=== PATIENT | male | born 1990 | race Caucasian/White ===

== ENCOUNTER 2016-08-16 03:23 | Emergency (ER) | payer OTHER ==
[~2016-08-16] VITALS: Ht 193 cm; Wt 99.8 kg
[2016-08-16] MEDS ORDERED: KETOROLAC 30 MG/ML VIAL (J1885) IM ONE (04:00)
[2016-08-16] MEDS ORDERED: KETOROLAC 30 MG/ML VIAL (J1885) IV ONE (04:15)
[2016-08-16] MEDS ORDERED: METHOCARBAMOL 1,000 MG/10 ML VIAL (J2800) IM ONE (04:15)
[2016-08-16] MEDS ORDERED: METHOCARBAMOL 1,000 MG/10 ML VIAL (J2800) IV ONE (04:15)
[2016-08-16 04:52] VITALS: BP 129/63
== END 2016-08-16 05:01 | disposition home or self-care (01) ==
LOC: M ED 04:29
DX: M62.830 Muscle spasm of back (principal); M54.5 Low back pain; G89.29 Other chronic pain
CPT/HCPCS: 96374; 96375; 99282; J1885; J2800

== ENCOUNTER 2017-01-01 21:07 | Emergency (ER) | payer OTHER ==
[~2017-01-01] VITALS: Ht 193 cm; Wt 103.0 kg
[2017-01-01] MEDS ORDERED: CETI10TA (21:18)
[2017-01-01] MEDS ORDERED: CHAN1PAK9 (21:18)
[2017-01-01] MEDS ORDERED: SOMA350T PO (22:40)
[2017-01-01 22:44] VITALS: BP 123/55
[2017-01-01] MEDS ORDERED: KETOROLAC 60 MG/2 ML VIAL (J1885) IM ONE (22:45)
== END 2017-01-01 23:08 | disposition home or self-care (01) ==
LOC: M ED 21:07
DX: S39.012A Strain of muscle, fascia and tendon of lower back, initial encounter (principal); X58.XXXA Exposure to other specified factors, initial encounter; Y92.9 Unspecified place or not applicable; Y93.9 Activity, unspecified; Y99.8 Other external cause status; Z79.899 Other long term (current) drug therapy
CPT/HCPCS: 96372; 99282; J1885